=== PATIENT | male | born 1970 | race Caucasian/White ===

== ENCOUNTER 2024-07-24 21:41 | Inpatient (IN) | payer MEDICARE, OTHER ==
[2024-07-24] MEDS: MORPHINE SULFATE 2 MG/ML SYRINGE IVP PRN (22:41)
--- NOTE | 2024-07-24 22:41 | ED ---
General Adult HPI - General Source: patient, RN notes reviewed, old records reviewed Mode of arrival: ambulatory <Julieta Vazquez - Last Filed: 07/25/24 00:53> <Art Ewing - Last Filed: 07/31/24 23:15> - General Chief complaint: Fever Stated complaint: Headache,Fever Time Seen by Provider: 07/24/24 22:02 - History of Present Illness Initial comments: 54-year-old male presents with complaints of abdominal pain started 2 days ago. Reports a month ago he was having similar symptoms and went to the hospital where he was found to have a kidney stone, at that time he was seen by urology in the hospital who placed a stent in the left ureter with the intention of getting it out later this week. States that time in the hospital is also given antibiotics which he has since completed. Reports the last couple days he has been feeling feverish (with the highest fever of 101.3) with chills and just feeling very ill including some left lower quadrant pain that radiates to the groin into the left back. States after not having the pain controlled by [id number] medication and his symptoms seemingly getting worse he decided to come into the ER for further evaluation. (Julieta Vazquez) - Related Data Home Medications Medication Instructions Recorded Confirmed Albuterol Sulfate [Albuterol 2 puff PO RT-Q4H PRN 07/25/24 07/25/24 Sulfate Hfa] Ammonium Lactate Lotion 1 applic TOPICAL DAILY 07/25/24 07/25/24 [Lac-Hydrin 12% Lotion] Aspirin 81 mg PO DAILY 07/25/24 07/25/24 Atorvastatin Calcium [Lipitor] 40 mg PO DAILY 07/25/24 07/25/24 Brimonidine Tartrate/Timolol 1 drop BOTH EYES BID 07/25/24 07/25/24 [Combigan 0.2%-0.5% Eye Drops] Cyanocobalamin [Vitamin B-12] 500 mcg PO DAILY 07/25/24 07/25/24 Dextroamphetamine/Amphetamine 20 mg PO DAILY 07/25/24 07/25/24 [Adderall Xr 20 mg Capsule] FLUoxetine HCL [PROzac] 40 mg PO DAILY 07/25/24 07/25/24 Fenofibrate [Lofibra] 160 mg PO DAILY 07/25/24 07/25/24 Ferrous Sulfate [Iron (65 MG 325 mg PO DAILY 07/25/24 07/25/24 Elemental)] Fluticasone Nasal [place] [Flonase 1 spray EA NOSTRIL DAILY 07/25/24 07/25/24 Nasal [place]] Glucagon [Gvoke Pfs 1-Pack Syringe] 1 mg SQ DIRECTED PRN 07/25/24 07/25/24 Insulin Regular [humuLIN R] 0.01 units SQ-PUMP CONTINUOUS 07/25/24 07/25/24 Latanoprost [Latanoprost 0.005%] 1 drop BOTH EYES HS 07/25/24 07/25/24 Levothyroxine Sodium [Synthroid] 125 mcg PO DAILY 07/25/24 07/25/24 Liothyronine Sodium [Cytomel] 5 mcg PO BID 07/25/24 07/25/24 Loratadine [Claritin] 10 mg PO DAILY 07/25/24 07/25/24 Losartan Potassium [Cozaar] 100 mg PO DAILY 07/25/24 07/25/24 OXcarbazepine [Trileptal] 300 mg PO BID 07/25/24 07/25/24 Omeprazole 40 mg PO DAILY 07/25/24 07/25/24 Ondansetron Odt [Zofran ODT] 4 mg PO Q8H PRN 07/25/24 07/25/24 Potassium Chloride [Klor-Con M10] 10 meq PO BID 07/25/24 07/25/24 Pregabalin [Lyrica] 150 mg PO BID 07/25/24 07/25/24 Semaglutide [Ozempic] 0.25 mg SQ TH 07/25/24 07/25/24 Testosterone Cypionate 200 mg IM TH 07/25/24 07/25/24 [Depo-Testosterone] Vitamin B Complex 1 cap PO DAILY 07/25/24 07/25/24 amLODIPine [Norvasc] 5 mg PO DAILY 07/25/24 07/25/24 metFORMIN HCL [Glucophage] 500 mg PO DAILY 07/25/24 07/25/24 traZODone HCL [Desyrel] 50 mg PO HS 07/25/24 07/25/24 Previous Rx's Medication Instructions Recorded Amoxic-Pot Clav 875-125Mg 1 tab PO Q12HR 14 Days #28 tab 07/29/24 [Augmentin [id number]] Allergies Allergy/AdvReac Type Severity Reaction Status Date / Time No Known Allergies Allergy Verified 07/25/24 09:57 Review of Systems ROS Other: All systems not noted in ROS Statement are negative. <Julieta Vazquez - Last Filed: 07/25/24 00:53> ROS Other: All systems not noted in ROS Statement are negative. <Art Ewing - Last Filed: 07/31/24 23:15> ROS Statement: Those systems with pertinent positive or pertinent negative responses have been documented in the HPI. Past Medical History Past Medical History: Diabetes Mellitus, Hypertension Additional Past Medical History / Comment(s): kidney stones Additional Past Surgical History / Comment(s): R leg amputee Past Psychological History: No Psychological Hx Reported <Julieta Vazquez - Last Filed: 07/25/24 00:53> General Exam <Julieta Vazquez - Last Filed: 07/25/24 00:53> - General Exam Comments Initial Comments: GENERAL: In no apparent distress at the time of examination. Pleasant and cooperative. HEENT: Head is atraumatic, normocephalic. Pupils are equal, round, and reactive to light. Sclerae anicteric. Conjunctivae are clear. Mucus membranes of the mouth are moist. Neck is supple. RESPIRATORY: Clear to auscultation. No wheezes, rales, or rhonchi. No use of accessory muscles. Patient maintaining oxygen saturation greater than 92%. No chest wall tenderness is noted on palpation or with deep breathing. CARDIOVASCULAR: Regular rate and rhythm. S1 and S2 noted. No systolic or diastolic murmur auscultated. No JVD noted. No S3 or S4 noted. GASTROINTESTINAL: No distention noted. Abdomen soft and round. Normal active bowel sounds auscultated x 4 quadrants. Tenderness palpated most significant in the left lower quadrant with extending tenderness to the left groin and left flank as well as left back INTEGUMENTARY: No cyanosis. No jaundice. No rashes noted. No cellulitis noted. 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 Appropriate affect. Intact judgement and insight. (Julieta Vazquez) Course Vital Signs 07/24/24 07/24/2407/25/25 21:56 23:00 01:12 Temperature 99.6 F 98.7 F Pulse Rate 107 H 91 98 Respiratory 18 16 21 Rate Blood Pressure 152/71 117/64 135/70 O2 Sat by Pulse 96 96 94 L Oximetry 07/25/24 07/25/24 07/25/24 03:05 06:07 06:28 Temperature 99.7 F H Pulse Rate 102 H 92 Respiratory 18 18 Rate Blood Pressure 126/72 121/60 O2 Sat by Pulse 93 L 98 Oximetry Medical Decision Making - Lab Data Result diagrams: 07/24/24 22:34 07/24/24 22:34 <Julieta Vazquez - Last Filed: 07/25/24 00:53> - Lab Data Result diagrams: 07/29/24 05:47 07/29/24 05:47 <Art Ewing - Last Filed: 07/31/24 23:15> - Medical Decision Making Was pt. sent in by a medical professional or institution (, PA, BIT TRIPOLER, urgent care, hospital, or retirement...) When possible be specific @ -No Did you speak to anyone other than the patient for history (EMS, parent, family, police, friend...)? What history was obtained from this source @ -No Did you review nursing and triage notes (agree or disagree)? Why? @ -I reviewed and agree with nursing and triage notes Were old charts reviewed (outside hosp., previous admission, EMS record, old EKG, old radiological studies, urgent care reports/EKG's, retirement records)? Report findings @ -No old charts were reviewed Differential Diagnosis? @ -Differential Abdominal Pain Men: Appendicitis, cholecystitis, diverticulosis, pyelonephritis, ischemic bowel, pancreatitis, hepatitis, UTI, gastroenteritis, AAA, incarcerated hernia, bowel o bstruction, constipation, inflammatory bowel, hepatitis, peptic ulcer disease, splenic infarction, perforated viscus, testicular torsion, this is not meant to be an all-inclusive list EKG interpreted by me (3pts min.). @ -As above X-rays interpreted by me (1pt min.). @ -None done CT (1pt min.). @ -CT abdomen and pelvis without contrast not yet interpreted by radiology, but potential evidence of pyelonephritis on the left. U/S interpreted by me (1pt. min.). @ -None done What testing was considered but not performed or refused? (CT, X-rays, U/S, labs)? Why? @ -None What meds were considered but not given or refused? Why? @ -None Did you discuss the management of the patient with other professionals (professionals i.e. , PA, BIT TRIPOLER, lab, RT, psych nurse, social insurance adviser, quality assurance practice manager, teacher, legal compliance officer, clinical case manager)? Give summary @ -No Was smoking cessation discussed for >3mins.? @ -No Was critical care preformed (if so, how long)? @ -No Were there social determinants of health that impacted care today? How? (Homelessness, low income, unemployed, alcoholism, drug addiction, transportati on, low edu. Level, literacy, decrease access to med. care, snf, rehab)? @ -No Was there de-escalation of care discussed even if they declined (Discuss DNR or withdrawal of care, Hospice)? DNR status @ -No What co-morbidities impacted this encounter? (DM, HTN, Smoking, COPD, CAD, Cancer, CVA, ARF, Chemo, Hep., AIDS, mental health diagnosis, sleep apnea, morbid obesity)? @ -None Was patient admitted / discharged? Hospital course, mention meds given and route, prescriptions, significant lab abnormalities, going to OR and other pertinent info. @ -Admitted, 54-year-old male presenting with abdominal pain while here underwent laboratory testing which showed an elevated white count and urine with significant amounts of WBCs and RBCs. CT scan not yet read by radiology but in conjunction with clinical presentation and lab work and findings interpreted it would appear he has potential pyelonephritis. Sodium also was low at 128. Patient was started on Rocephin 2 g every 24 hours and has received pain medication which has helped his pain significantly. Undiagnosed new problem with uncertain prognosis? @ -No Drug Therapy requiring intensive monitoring for toxicity (Heparin, Nitro, Insulin, Cardizem)? @ -No Were any procedures done? @ -No Diagnosis/symptom? @ -Pyelonephritis Acute, or Chronic, or Acute on Chronic? @ -Default Uncomplicated (without systemic symptoms) or Complicated (systemic symptoms)? @ -Default Side effects of treatment? @ -No Exacerbation, Progression, or Severe Exacerbation? @ -No Poses a threat to life or bodily function? How? (Chest pain, [place], [place], pneumonia, PE, COPD, DKA, ARF, appy, cholecystitis, CVA, Diverticulitis, Homicidal, Suicidal, threat to staff... and all critical care pts) @ -Yes, pyelonephritis if left untreated can lead to sepsis which can lead to endorgan damage and . (Julieta Vazquez) I personally saw the patient and performed the critical portion of the service. I discussed the patient care with the Dr Villafana. I directed management, care planning and final disposition of the patient. This includes, but not limited to, review of all lab work, radiological studies, EKG's, consultations, vital signs, and nursing notes. EKG interpreted by me (3pts min.) @ [as above] X-Rays interpreted by me (1 pt min.) @ [none] CT interpreted by me ( 1pt min.) @He has positive pyelonephritis U/S interpreted by me (1 pt min.) @ [none] Critical care time of [0] minutes excluding separately billable procedures was spent in conjunction with critical care activities provided by the Resident and Attending simultaneously. I was present during [no procedures] for all critical portions of the procedure and as immediately available to furnish service during the entire procedure. (Art Ewing) - Lab Data Lab Results 07/24/24 07/24/24 07/24/24 Range/Units 22:34 22:34 22:34 WBC 16.88 H (4.50-10.00) 10*3/uL RBC 4.53 (4.40-5.60) 10*6/uL Hgb 13.0 (13.0-17.0) g/dL Hct 36.5 L (39.6-50.0) % MCV 80.6 (80.0-97.0) fL MCH 28.7 (27.0-32.0) pg MCHC 35.6 (32.0-37.0) g/dL Plt Count 251 (140-440) 10*3/uL MPV 10.3 (9.5-12.2) fL Immature Gran % (Auto) 0.6 % Neutrophils % 78.4 % Lymphocytes % 8.2 % Monocytes % 12.3 % Eosinophils % 0.1 % Basophils % 0.4 % Immature Gran # 0.10 H (0.00-0.04) 10*3/uL Neutrophils # 13.24 H (1.80-7.70) 10*3/uL Lymphocytes # 1.38 (0.90-5.00) 10*3/uL Monocytes # 2.07 H (0.20-1.00) 10*3/uL Eosinophils # 0.02 L (0.04-0.35) 10*3/uL Basophils # 0.07 (0.00-0.10) 10*3/uL Sodium 128 L (137-145) mmol/L Potassium 3.9 (3.5-5.1) mmol/L Chloride 97 L (98-107) mmol/L Carbon Dioxide 21 L (22-30) mmol/L Anion Gap 10 mmol/L BUN 20 (9-20) mg/dL Creatinine 0.94 (0.66-1.25) mg/dL Est GFR (CKD-EPI)AfAm >90 (>60 ml/min/1.73 sqM) Est GFR (CKD-EPI)NonAf >90 (>60 ml/min/1.73 sqM) Glucose 63 L (74-99) mg/dL Estimated Ave Glu mg/dL mg/dL Hemoglobin A1c (<=6.0) % Calcium 9.0 (8.4-10.2) mg/dL Total Bilirubin 1.0 (0.2-1.3) mg/dL AST 33 (17-59) U/L ALT 22 (4-49) U/L Alkaline Phosphatase 69 (38-126) U/L Total Protein 6.5 (6.3-8.2) g/dL Albumin 3.7 (3.5-5.0) g/dL Urine Color Light Red Urine Appearance Turbid (Clear) Urine pH 6.5 (5.0-8.0) Ur Specific [place] 1.021 (1.001-1.035) Urine Protein 1+ H (Negative) Urine Glucose (UA) Negative (Negative) Urine Ketones Trace H (Negative) Urine Blood Large H (Negative) Urine Nitrite Negative (Negative) Urine Bilirubin Negative (Negative) Urine Urobilinogen 2.0 (<2.0) mg/dL Ur Leukocyte Esterase Large H (Negative) Urine RBC >182 H (0-5) /hpf Urine WBC >182 H (0-5) /hpf Urine Bacteria Occasional H (None) /hpf Urine Mucus Many H (None) /hpf Urine Yeast (Budding) Few H (None) /hpf 07/24/24 Range/Units 22:34 WBC (4.50-10.00) 10*3/uL RBC (4.40-5.60) 10*6/uL Hgb (13.0-17.0) g/dL Hct (39.6-50.0) % MCV (80.0-97.0) fL MCH (27.0-32.0) pg MCHC (32.0-37.0) g/dL Plt Count (140-440) 10*3/uL MPV (9.5-12.2) fL Immature Gran % (Auto) % Neutrophils % % Lymphocytes % % Monocytes % % Eosinophils % % Basophils % % Immature Gran # (0.00-0.04) 10*3/uL Neutrophils # (1.80-7.70) 10*3/uL Lymphocytes # (0.90-5.00) 10*3/uL Monocytes # (0.20-1.00) 10*3/uL Eosinophils # (0.04-0.35) 10*3/uL Basophils # (0.00-0.10) 10*3/uL Sodium (137-145) mmol/L Potassium (3.5-5.1) mmol/L Chloride (98-107) mmol/L Carbon Dioxide (22-30) mmol/L Anion Gap mmol/L BUN (9-20) mg/dL Creatinine (0.66-1.25) mg/dL Est GFR (CKD-EPI)AfAm (>60 ml/min/1.73 sqM) Est GFR (CKD-EPI)NonAf (>60 ml/min/1.73 sqM) Glucose (74-99) mg/dL Estimated Ave Glu mg/dL 206 mg/dL Hemoglobin A1c 8.8 H (<=6.0) % Calcium (8.4-10.2) mg/dL Total Bilirubin (0.2-1.3) mg/dL AST (17-59) U/L ALT (4-49) U/L Alkaline Phosphatase (38-126) U/L Total Protein (6.3-8.2) g/dL Albumin (3.5-5.0) g/dL Urine Color Urine Appearance (Clear) Urine pH (5.0-8.0) Ur Specific [place] (1.001-1.035) Urine Protein (Negative) Urine Glucose (UA) (Negative) Urine Ketones (Negative) Urine Blood (Negative) Urine Nitrite (Negative) Urine Bilirubin (Negative) Urine Urobilinogen (<2.0) mg/dL Ur Leukocyte Esterase (Negative) Urine RBC (0-5) /hpf Urine WBC (0-5) /hpf Urine Bacteria (None) /hpf Urine Mucus (None) /hpf Urine Yeast (Budding) (None) /hpf Disposition <Julieta Vazquez - Last Filed: 07/25/24 00:53> <Art Ewing - Last Filed: 07/31/24 23:15> Clinical Impression: Pyelonephritis Disposition: ADMITTED IP TO THIS HOSP Condition: Fair
[2024-07-24 22:54] LABS: Basophils # (A) 0.07 10*3/uL (0.00-0.10); Basophils % (A) 0.4 %; Eosinophils # (A) 0.02 10*3/uL (0.04-0.35); Eosinophils % (A) 0.1 %; HCT 36.5 % (39.6-50.0); Lymphocytes # (A) 1.38 10*3/uL (0.90-5.00); Lymphocytes % (A) 8.2 %; MCH 28.7 pg (27.0-32.0); MCHC 35.6 g/dL (32.0-37.0); MCV 80.6 fL (80.0-97.0); Mean Platelet Volume 10.3 fL (9.5-12.2); Monocytes # (A) 2.07 10*3/uL (0.20-1.00); Monocytes % (A) 12.3 %; Neutrophils # (A) 13.24 10*3/uL (1.80-7.70); Neutrophils % (A) 78.4 %; Platelet Count 251 10*3/uL (140-440); RBC 4.53 10*6/uL (4.40-5.60); RDW 15.1 % (11.5-14.5); WBC 16.88 10*3/uL (4.50-10.00)
[2024-07-24 23:07] LABS: ALT 22 U/L (4-49); AST 33 U/L (17-59); African American GFR (CKD) >90 (>60 ml/min/1.73 sqM); Albumin 3.7 g/dL (3.5-5.0); Alkaline Phosphatase 69 U/L (38-126); Anion Gap 10 mmol/L; Blood Urea Nitrogen 20 mg/dL (9-20); Carbon Dioxide 21 mmol/L (22-30); Chloride 97 mmol/L (98-107); Glucose 63 mg/dL (74-99); Non-African American GFR(CKD) >90 (>60 ml/min/1.73 sqM); Sodium 128 mmol/L (137-145); Total Protein 6.5 g/dL (6.3-8.2)
[2024-07-24 23:15] LABS: Potassium 3.9 mmol/L (3.5-5.1)
[2024-07-24 23:42] LABS: Appearance,Urine Turbid (Clear); Bacteria,Urine Occasional /hpf; Bilirubin,Urine Negative (Negative); Blood,Urine Large (Negative); Budding Yeast,Urine Few /hpf; Color,Urine Light Red; Glucose,Urine (UA) Negative (Negative); Ketones,Urine Trace (Negative); Leukocyte Esterase,Urine Large (Negative); Mucus,Urine Many /hpf; Nitrite,Urine Negative (Negative); PH, Urine 6.5 (5.0-8.0); Protein,Urine 1+ (Negative); RBC,Urine >182 /hpf (0-5); Specific Gravity,Urine 1.021 (1.001-1.035); WBC,Urine >182 /hpf (0-5)
[2024-07-25] MEDS ORDERED: NALOXONE 0.4 MG/ML 1 ML VIAL IV PRN ×2 (00:12→00:36)
[2024-07-25] MEDS ORDERED: ONDANSETRON 4 MG/2 ML VIAL IVP PRN (00:36)
[2024-07-25] MEDS: KETOROLAC 15 MG/ML 1 ML VIAL IVP STA (00:59)
[2024-07-25] MEDS: SODIUM CHLORIDE 0.9% 1,000 ML IV SCH (00:59)
--- NOTE | 2024-07-25 01:07 | CT ---
EXAM: CT Abdomen and Pelvis Without Intravenous Contrast CLINICAL HISTORY: ITS.REASON CT Reason: LLQ Pain TECHNIQUE: Axial computed tomography images of the abdomen and pelvis without intravenous contrast. CTDI is 16.7 mGy and DLP is 1084 mGy-cm. This CT exam was performed using one or more of the following dose reduction techniques: automated exposure control, adjustment of the mA and/or kV according to patient size, and/or use of iterative reconstruction technique. COMPARISON: No relevant prior studies available. FINDINGS: Lung bases: Unremarkable. No mass. No consolidation. ABDOMEN: Liver: Unremarkable. Gallbladder and bile ducts: Unremarkable. No calcified stones. No ductal dilation. Pancreas: Unremarkable. No ductal dilation. Spleen: Unremarkable. No splenomegaly. Adrenals: Unremarkable. No mass. Kidneys and ureters: Left nephroureteral stent terminates in the urinary bladder, which is thickened, correlate for UTI. Urinalysis recommended. No obstructing stones. No hydronephrosis. Stomach and bowel: Diverticulosis, without acute diverticulitis. No small bowel obstruction. No free air. PELVIS: Appendix: No findings to suggest acute appendicitis. Bladder: Unremarkable. No stones. Reproductive: Unremarkable as visualized. ABDOMEN and PELVIS: Intraperitoneal space: See above. Bones/joints: Degenerative changes of the spine. No acute fracture. No dislocation. Soft tissues: Fat containing bilateral inguinal hernias. Vasculature: Atherosclerotic changes of the aorta. No abdominal aortic aneurysm. Lymph nodes: Unremarkable. No enlarged lymph nodes. IMPRESSION: 1. Left nephroureteral stent terminates in the urinary bladder, which is thickened, correlate for UTI. Urinalysis recommended. 2. Diverticulosis, without acute diverticulitis. No small bowel obstruction. No free air.
--- NOTE | 2024-07-25 08:16 | P.GSCN ---
History of Present Illness Consult date: 07/25/24 History of present illness: 54 yo male admitted for probable left pyelonephritis. A few days ago he presented to a hospital in [place]. For an obstructing left ureteral stone. A stent was placed in the left ureter with the plan to remove the stone and stent in the near future. He has had a temp to 101.3 , a wbc of 16 k and inflammed urine. The ct scan shows a left ureteral stent in proper position. the stone on the left is not obviously seen. Past Medical History Past Medical History: Diabetes Mellitus, Hypertension Additional Past Medical History / Comment(s): kidney stones Additional Past Surgical History / Comment(s): R leg amputee Past Psychological History: No Psychological Hx Reported Medications and Allergies Allergies Allergy/AdvReac Type Severity Reaction Status Date / Time No Known Allergies Allergy Verified 07/24/24 22:00 Surgical - Exam Vital Signs Temp Pulse Resp BP Pulse Ox 99.6 F 107 H 18 152/71 96 07/24/24 21:56 07/24/24 21:56 07/24/24 21:56 07/24/24 21:56 07/24/24 21:56 - General well developed, well nourished, no distress - Eyes normal ocular movement, no icteric - ENT no hearing loss, no congestion - Neck no masses, trachea midline - Respiratory normal respiratory effort, clear to auscultation - Abdomen Abdomen: soft, non tender, no guarding, no rigid, no rebound - Integumentary no rash, no abnormal pigmentation - Neurologic no disoriented, no combative - Psychiatric oriented to time, oriented to person, oriented to place, speech is normal, caity ry intact Results - Labs 07/24/24 22:34 07/24/24 22:34 Abnormal Lab Results - Last 24 Hours (Table) 07/24/24 07/24/24 07/24/24 Range/Units 22:34 22:34 22:34 WBC 16.88 H (4.50-10.00) 10*3/uL Hct 36.5 L (39.6-50.0) % Immature Gran # 0.10 H (0.00-0.04) 10*3/uL Neutrophils # 13.24 H (1.80-7.70) 10*3/uL Monocytes # 2.07 H (0.20-1.00) 10*3/uL Eosinophils # 0.02 L (0.04-0.35) 10*3/uL Sodium 128 L (137-145) mmol/L Chloride 97 L (98-107) mmol/L Carbon Dioxide 21 L (22-30) mmol/L Glucose 63 L (74-99) mg/dL Urine Protein 1+ H (Negative) Urine Ketones Trace H (Negative) Urine Blood Large H (Negative) Ur Leukocyte Esterase Large H (Negative) Urine RBC >182 H (0-5) /hpf Urine WBC >182 H (0-5) /hpf Urine Bacteria Occasional H (None) /hpf Urine Mucus Many H (None) /hpf Urine Yeast (Budding) Few H (None) /hpf Diabetes panel 07/24/24 Range/Units 22:34 Sodium 128 L (137-145) mmol/L Potassium 3.9 (3.5-5.1) mmol/L Chloride 97 L (98-107) mmol/L Carbon Dioxide 21 L (22-30) mmol/L BUN 20 (9-20) mg/dL Creatinine 0.94 (0.66-1.25) mg/dL Glucose 63 L (74-99) mg/dL Calcium 9.0 (8.4-10.2) mg/dL AST 33 (17-59) U/L ALT 22 (4-49) U/L Alkaline Phosphatase 69 (38-126) U/L Total Protein 6.5 (6.3-8.2) g/dL Albumin 3.7 (3.5-5.0) g/dL Calcium panel 07/24/24 Range/Units 22:34 Calcium 9.0 (8.4-10.2) mg/dL Albumin 3.7 (3.5-5.0) g/dL Pituitary panel 07/24/24 Range/Units 22:34 Sodium 128 L (137-145) mmol/L Potassium 3.9 (3.5-5.1) mmol/L Chloride 97 L (98-107) mmol/L Carbon Dioxide 21 L (22-30) mmol/L BUN 20 (9-20) mg/dL Creatinine 0.94 (0.66-1.25) mg/dL Glucose 63 L (74-99) mg/dL Calcium 9.0 (8.4-10.2) mg/dL Adrenal panel 07/24/24 Range/Units 22:34 Sodium 128 L (137-145) mmol/L Potassium 3.9 (3.5-5.1) mmol/L Chloride 97 L (98-107) mmol/L Carbon Dioxide 21 L (22-30) mmol/L BUN 20 (9-20) mg/dL Creatinine 0.94 (0.66-1.25) mg/dL Glucose 63 L (74-99) mg/dL Calcium 9.0 (8.4-10.2) mg/dL Total Bilirubin 1.0 (0.2-1.3) mg/dL AST 33 (17-59) U/L ALT 22 (4-49) U/L Alkaline Phosphatase 69 (38-126) U/L Total Protein 6.5 (6.3-8.2) g/dL Albumin 3.7 (3.5-5.0) g/dL - Imaging CT scan - abdomen: report reviewed, image reviewed CT scan - pelvis: report reviewed, image reviewed Assessment and Plan Assessment: Impression: p\uti with sepsis s/p stent placement. left ureteral stone. history of kdiney stones. recommendations: the patient should continue to receive broad spectrum antibiotics until cultures are back. No surgical intervention until after the infection clears, probably in 1-2 weeks. Patient should notify his urologist in [place] that he will not have his procedure this week but upon returning to [place] he can have it done. Time with Patient: Greater than 30
[2024-07-25] MEDS ORDERED: ONDANSETRON ODT 4 MG TAB PO PRN (10:24)
[2024-07-25] MEDS ORDERED: ALBUTEROL NEBULIZED 2.5 MG/3 ML INHALATION PRN (10:24)
[2024-07-25] MEDS ORDERED: DEXTROSE 50% SYRINGE 50 ML IVP PRN (10:27)
[2024-07-25] MEDS ORDERED: GLUCAGON 1 MG/ML VIAL SQ PRN (11:10)
[2024-07-25] MEDS ORDERED: INSULIN REGULAR 100 UNIT/ML VIAL (IV) SQ SCH (11:15)
[2024-07-25] MEDS: ATORVASTATIN 40 MG TAB PO SCH (11:42)
[2024-07-25] MEDS: BRIMONIDINE TARTRATE 0.2% DROPS 5 ML BTL BOTH EYES SCH (11:42)
[2024-07-25] MEDS: AMMONIUM LACTATE 12% LOTION 225 GM BTL TOPICAL SCH (11:42)
[2024-07-25] MEDS: PREGABALIN 75 MG CAP PO SCH (11:43)
[2024-07-25] MEDS: LEVOTHYROXINE 125 MCG TAB PO SCH (11:44)
[2024-07-25] MEDS: FLUoxetine HCL 20 MG CAP PO SCH (11:44)
[2024-07-25] MEDS: LORATADINE 10 MG TAB PO SCH (11:44)
[2024-07-25] MEDS: FERROUS SULFATE 325 MG TAB PO SCH (11:44)
[2024-07-25] MEDS: PANTOPRAZOLE 40 MG TABLET PO SCH (11:44)
[2024-07-25] MEDS: LIOTHYRONINE SODIUM 5 MCG TAB PO SCH (11:44)
[2024-07-25] MEDS: FENOFIBRATE 160 MG TAB PO SCH (11:44)
[2024-07-25] MEDS: CYANOCOBALAMIN 500 MCG TAB PO SCH (11:45)
[2024-07-25] MEDS: FLUTICASONE NASAL 50MCG/SPRAY 16GM BTL EA NOSTRIL SCH (11:45)
[2024-07-25] MEDS: OXcarbazepine 300 MG TAB PO SCH (11:45)
[2024-07-25] MEDS: DEXTROAMPHETAMINE PO SCH (11:46)
[2024-07-25] MEDS: AMPHETAMINE PO SCH (11:46)
[2024-07-25] MEDS: Insulin Aspart (For Pump) 100 UNIT/ML VIAL SQ-PUMP SCH (11:55)
[2024-07-25] MEDS: INSULIN LISPRO (HumaLOG) 100 UNIT/ML 10 mL VL SQ SCH (11:57)
[2024-07-25] MEDS: NON FORMULARY DRUG (Vitamin B Complex [Vitamin B Complex] 1 EACH Capsule) PO SCH (12:02)
[2024-07-25] MEDS: amLODIPine 5 MG TAB PO SCH (12:03)
[2024-07-25 12:05] LABS: Glucose,Whole Blood 312 mg/dL (70-110)
[2024-07-25] MEDS: IBUPROFEN 400 MG TAB PO PRN (13:31)
[2024-07-25 16:29] LABS: Glucose,Whole Blood 410 mg/dL (70-110)
--- NOTE | 2024-07-25 17:23 | HP ---
HISTORY AND PHYSICAL CHIEF COMPLAINT: Fever as well as left flank pain. HISTORY OF PRESENT ILLNESS: This 54-year-old gentleman with a past medical history of left ureteral stent, had an obstructing left ureteral stone. The patient was admitted with fever and flank pain with possible pyelonephritis. Urology evaluated the patient. A CAT scan of the abdomen and pelvis showed left nephroureteral stent. There is no history of fever, rigors, or chills at this time. PAST MEDICAL HISTORY: Reviewed, include diabetes mellitus, hypertension, and kidney stones. Rest of the history and rest of the chart is also reviewed. HOME MEDICATIONS: Reviewed, include Dose and rest of medications reviewed. ALLERGIES: None. FAMILY HISTORY: No history of heart disease or strokes in the family. SOCIAL HISTORY: No history of smoking or alcohol. REVIEW OF SYSTEMS: A 14-point review of systems negative except as mentioned earlier. PHYSICAL EXAMINATION: VITAL SIGNS: Pulse 92, blood pressure 110/60, and respirations 18. CHEST: Clear to auscultation. CARDIOVASCULAR: S1, S2. ABDOMEN: Soft, obese, mild diffuse tenderness in the left side. NERVOUS SYSTEM: No focal deficit. LABORATORY DATA: Reviewed. ASSESSMENT: 1. Acute pyelonephritis, left. 2. History of left ureteric stent and ureterolithiasis. 3. Elevated WBC. 4. Hyponatremia. 5. Diabetes. 6. History of hypertension. 7. Multiple complex medical issues. RECOMMENDATIONS AND DISCUSSION: This 54-year-old gentleman presented with multiple complex medical issues. Monitor the patient closely. We will continue the current medications and empiric antibiotics. Obtain urine and blood cultures. Urology consultation and symptomatic treatment. Resume home medications once they are confirmed. Repeat labs. Prognosis guarded, because of multiple complex medical issues. Further recommendations to follow. MMODL / IJN: [id number] / MTDD
[2024-07-25 20:25] LABS: Glucose,Whole Blood 445 mg/dL (70-110)
[2024-07-25] MEDS: LATANOPROST 0.005% OPHTH DROPS 2.5 ML BTL BOTH EYES SCH (20:30)
[2024-07-25] MEDS: TIMOLOL 0.5% OPHTH DROPS 5 ML BTL BOTH EYES SCH (20:30)
[2024-07-25] MEDS: POTASSIUM CHLORIDE ER 10 MEQ TAB.ER.PRT PO SCH (20:31)
[2024-07-25] MEDS: traZODone HCL 50 MG TAB PO SCH (20:31)
[2024-07-25] MEDS: INSULIN GLARGINE (LANTUS) 100 UNIT/ML SYR SQ SCH (20:31)
[2024-07-26 06:07] LABS: Glucose,Whole Blood 300 mg/dL (70-110)
[2024-07-26] MEDS: metFORMIN 500 MG TAB PO SCH (06:28)
[2024-07-26 07:16] LABS: Basophils # (A) 0.02 10*3/uL (0.00-0.10); Basophils % (A) 0.2 %; Eosinophils # (A) 0.04 10*3/uL (0.04-0.35); Eosinophils % (A) 0.5 %; HCT 34.8 % (39.6-50.0); Lymphocytes # (A) 1.02 10*3/uL (0.90-5.00); Lymphocytes % (A) 11.7 %; MCH 28.4 pg (27.0-32.0); MCHC 34.5 g/dL (32.0-37.0); MCV 82.5 fL (80.0-97.0); Mean Platelet Volume 9.9 fL (9.5-12.2); Monocytes # (A) 1.16 10*3/uL (0.20-1.00); Monocytes % (A) 13.3 %; Neutrophils # (A) 6.39 10*3/uL (1.80-7.70); Neutrophils % (A) 73.5 %; Platelet Count 246 10*3/uL (140-440); RBC 4.22 10*6/uL (4.40-5.60); RDW 15.4 % (11.5-14.5)
[2024-07-26 07:26] LABS: ALT 19 U/L (4-49); AST 19 U/L (17-59); African American GFR (CKD) >90 (>60 ml/min/1.73 sqM); Albumin 3.2 g/dL (3.5-5.0); Alkaline Phosphatase 84 U/L (38-126); Anion Gap 13 mmol/L; Blood Urea Nitrogen 21 mg/dL (9-20); Calcium 8.6 mg/dL (8.4-10.2); Carbon Dioxide 22 mmol/L (22-30); Chloride 98 mmol/L (98-107); Glucose 301 mg/dL (74-99); Non-African American GFR(CKD) 79 (>60 ml/min/1.73 sqM); Phosphorus 3.2 mg/dL (2.5-4.5); Potassium 4.2 mmol/L (3.5-5.1); Sodium 133 mmol/L (137-145); Total Bilirubin 0.6 mg/dL (0.2-1.3); Total Protein 5.6 g/dL (6.3-8.2)
[2024-07-26] MEDS: ASPIRIN 81 MG PO SCH (08:36)
[2024-07-26] MEDS: ACETAMINOPHEN TAB 325 MG TAB PO PRN (08:37)
[2024-07-26] MEDS: LOSARTAN 50 MG TAB PO SCH (08:38)
[2024-07-26] MEDS ORDERED: hydroCHLOROthiazide 25 MG TAB PO SCH (09:00)
[2024-07-26] MEDS ORDERED: NON FORMULARY DRUG (Omeprazole [Omeprazole] 40 MG Capsule.Dr) PO SCH (09:00)
[2024-07-26] MEDS: amLODIPine 5 MG TAB PO SCH (10:47)
[2024-07-26 11:35] LABS: Glucose,Whole Blood 384 mg/dL (70-110)
[2024-07-26] MEDS: MORPHINE SULFATE 4 MG/ML SYRINGE IV PRN (17:33)
[2024-07-26 18:09] LABS: Glucose,Whole Blood 421 mg/dL (70-110)
[2024-07-26 20:19] LABS: Glucose,Whole Blood 376 mg/dL (70-110)
--- NOTE | 2024-07-26 21:39 | PN ---
PROGRESS NOTE DATE OF SERVICE: 07/26/2024 SUBJECTIVE: This is a 54-year-old gentleman, who was admitted with acute pyelonephritis, is being closely monitored, no chest pain, no palpitation. Cultures are negative so far. PHYSICAL EXAMINATION: VITAL SIGNS: Pulse 84, blood pressure 120/70, respirations 17. CHEST: No rhonchi. No crackles. ABDOMEN: Soft, mild diffuse tenderness. LABORATORY DATA: Reviewed. Glucose 384. ASSESSMENT: 1. Acute pyelonephritis, left with continued fever. 2. History of left ureteric stent and ureterolithiasis. 3. Elevated WBC. 4. Diabetes mellitus type 2 with hyperglycemia. 5. Hyponatremia. 6. History of hypertension. 7. Multiple complex medical issues. RECOMMENDATIONS: Recommend to continue current management and continue symptomatic treatment. CT scan showed some thickening of the nephroureteral stent which is terminated in the urinary bladder. The patient is running some fever. I would recommend to continue the antibiotics. Obtain repeat set of cultures. I would also recommend Infectious Disease evaluation and closely follow with Urology. I would also recommend tighter control of the diabetes mellitus. Further recommendations to follow. MMODL / IJN: [id number] /
--- NOTE | 2024-07-26 22:34 | P.CONS ---
History of Present Illness - Reason for Consult Consult date: 07/26/[address]/UTI Requesting physician: Ruth Kennedy - Chief Complaint Fever flank pain burning urine x 2 days - History of Present Illness Patient is a 54-year-old male past medical history significant for diabetes mellitus hypertension kidney stone in this patient who recently was treated for left-sided hydronephrosis/pyelonephritis with this patient who did have a left ureteral stent placement patient was subsequent discharged home on a 3-day course of oral doxycycline patient presented to [facility] ER concerning for fever chills left flank pain in this patient symptom has been getting worse for the last 2 days before presentation to the hospital patient has been complaining of some headache but no URI symptoms no chest pain shortness of breath or cough no nausea no vomiting did have some constipation no diarrhea did have urinary burning and frequency but no hematuria in addition to the flank pain which is moderate intensity without radiation patient on presentation to the hospital was running a low-grade fever of 99.6 degrees warm dry did have temperature 100.1 F this morning patient was mildly tachycardic but not hypotensive or hypoxic patient did have white count of 16.88 creatinine was 0.94 liver enzymes are normal urine has been positive blood and urine culture have been obtained patient is currently being treated with Rocephin 2 g daily patient also have abdominal pelvis CT which shows left nephroureteral stent terminates in the bladder which is thickening correlate for UTI diverticulosis without acute diverticulitis infectious he was consulted for further management of antibiotic therapy Review of Systems Positive point and negatives has been mentioned in the HPI, complete review of systems was performed and all other systems are negative Past Medical History Past Medical History: Diabetes Mellitus, Hypertension Additional Past Medical History / Comment(s): kidney stones History of Any Multi-Drug Resistant Organisms: Unobtainable Additional Past Surgical History / Comment(s): R leg amputee Past Psychological History: No Psychological Hx Reported Medications and Allergies Home Medications Medication Instructions Recorded Confirmed Type Albuterol Sulfate [Albuterol 2 puff PO RT-Q4H PRN 07/25/24 07/25/24 History Sulfate Hfa] Ammonium Lactate Lotion 1 applic TOPICAL DAILY 07/25/24 07/25/24 History [Lac-Hydrin 12% Lotion] Aspirin 81 mg PO DAILY 07/25/24 07/25/24 History Atorvastatin Calcium [Lipitor] 40 mg PO DAILY 07/25/24 07/25/24 History Brimonidine Tartrate/Timolol 1 drop BOTH EYES BID 07/25/24 07/25/24 History [Combigan 0.2%-0.5% Eye Drops] Cyanocobalamin [Vitamin B-12] 500 mcg PO DAILY 07/25/24 07/25/24 History Dextroamphetamine/Amphetamine 20 mg PO DAILY 07/25/24 07/25/24 History [Adderall Xr 20 mg Capsule] FLUoxetine HCL [PROzac] 40 mg PO DAILY 07/25/24 07/25/24 History Fenofibrate [Lofibra] 160 mg PO DAILY 07/25/24 07/25/24 History Ferrous Sulfate [Iron (65 MG 325 mg PO DAILY 07/25/24 07/25/24 History Elemental)] Fluticasone Nasal [place] [Flonase 1 spray EA NOSTRIL DAILY 07/25/24 07/25/24 History Nasal [place]] Glucagon [Gvoke Pfs 1-Pack Syringe] 1 mg SQ DIRECTED PRN 07/25/24 07/25/24 History Insulin Regular [humuLIN R] 0.01 units SQ-PUMP CONTINUOUS 07/25/24 07/25/24 History Latanoprost [Latanoprost 0.005%] 1 drop BOTH EYES HS 07/25/24 07/25/24 History Levothyroxine Sodium [Synthroid] 125 mcg PO DAILY 07/25/24 07/25/24 History Liothyronine Sodium [Cytomel] 5 mcg PO BID 07/25/24 07/25/24 History Loratadine [Claritin] 10 mg PO DAILY 07/25/24 07/25/24 History Losartan Potassium [Cozaar] 100 mg PO DAILY 07/25/24 07/25/24 History OXcarbazepine [Trileptal] 300 mg PO BID 07/25/24 07/25/24 History Omeprazole 40 mg PO DAILY 07/25/24 07/25/24 History Ondansetron Odt [Zofran Odt] 4 mg PO Q8H PRN 07/25/24 07/25/24 History Potassium Chloride [Klor-Con M10] 10 meq PO BID 07/25/24 07/25/24 History Pregabalin [Lyrica] 150 mg PO BID 07/25/24 07/25/24 History Semaglutide [Ozempic] 0.25 mg SQ TH 07/25/24 07/25/24 History Testosterone Cypionate 200 mg IM TH 07/25/24 07/25/24 History [Depo-Testosterone] Vitamin B Complex 1 cap PO DAILY 07/25/24 07/25/24 History amLODIPine [Norvasc] 5 mg PO DAILY 07/25/24 07/25/24 History hydroCHLOROthiazide [Hydrodiuril] 25 mg PO DAILY 07/25/24 07/25/24 History metFORMIN HCL [Glucophage] 500 mg PO DAILY 07/25/24 07/25/24 History traZODone HCL [Desyrel] 50 mg PO HS 07/25/24 07/25/24 History Allergies Allergy/AdvReac Type Severity Reaction Status Date / Time No Known Allergies Allergy Verified 07/25/24 09:57 Physical Exam Vitals: Vital Signs Temp Pulse Resp BP Pulse Ox 07/26/24 10:47 98.5 F 84 128/73 07/26/24 08:00 100.1 F H 96 17 132/73 96 07/26/24 01:43 98.1 F 92 20 141/52 93 L 07/25/24 18:57 98.2 F 104 H 16 147/66 97 Intake and Output 07/26/24 07/26/24 07/26/24 06:59 14:59 22:59 Intake Total 200 Output Total 300 Balance -300 200 Intake: Oral 200 Output: Urine 300 Other: Voiding Method Toilet Urinal GENERAL DESCRIPTION: Middle-age male lying in bed, no distress. No tachypnea or accessory muscle of respiration use. HEENT: Shows Pallor , no scleral icterus. Oral mucous membrane is dry. NECK: Trachea central, no thyromegaly. LUNGS: Unlabored breathing. Clear to auscultation anteriorly. No wheeze or crackle. HEART: S1, S2, regular rate and rhythm. No loud murmur ABDOMEN: Soft, no tenderness , guarding or rigidity, no organomegaly EXTREMITIES: Left leg BKA prosthesis SKIN: No rash, no masses palpable. NEUROLOGICAL: The patient is awake, alert, oriented x3, mood and affect normal. Results CBC & Chem 7: 07/26/24 06:35 07/26/24 06:35 Labs: Abnormal Lab Results - Last 24 Hours (Table) 07/24/24 07/25/24 07/25/24 Range/Units 22:34 16:28 20:24 RBC (4.40-5.60) 10*6/uL Hgb (13.0-17.0) g/dL Hct (39.6-50.0) % Immature Gran # (0.00-0.04) 10*3/uL Monocytes # (0.20-1.00) 10*3/uL Sodium (137-145) mmol/L BUN (9-20) mg/dL Glucose (74-99) mg/dL POC Glucose (mg/dL) 410 H 445 H (70-110) mg/dL Hemoglobin A1c 8.8 H (<=6.0) % Total Protein (6.3-8.2) g/dL Albumin (3.5-5.0) g/dL 07/26/24 07/26/24 07/26/24 Range/Units 06:06 06:35 06:35 RBC 4.22 L (4.40-5.60) 10*6/uL Hgb 12.0 L (13.0-17.0) g/dL Hct 34.8 L (39.6-50.0) % Immature Gran # 0.07 H (0.00-0.04) 10*3/uL Monocytes # 1.16 H (0.20-1.00) 10*3/uL Sodium 133 L (137-145) mmol/L BUN 21 H (9-20) mg/dL Glucose 301 H (74-99) mg/dL POC Glucose (mg/dL) 300 H (70-110) mg/dL Hemoglobin A1c (<=6.0) % Total Protein 5.6 L (6.3-8.2) g/dL Albumin 3.2 L (3.5-5.0) g/dL 07/26/24 Range/Units 11:34 RBC (4.40-5.60) 10*6/uL Hgb (13.0-17.0) g/dL Hct (39.6-50.0) % Immature Gran # (0.00-0.04) 10*3/uL Monocytes # (0.20-1.00) 10*3/uL Sodium (137-145) mmol/L BUN (9-20) mg/dL Glucose (74-99) mg/dL POC Glucose (mg/dL) 384 H (70-110) mg/dL Hemoglobin A1c (<=6.0) % Total Protein (6.3-8.2) g/dL Albumin (3.5-5.0) g/dL Assessment and Plan (1) Sepsis Current Visit: Yes Status: Acute Code(s): A41.9 - SEPSIS, UNSPECIFIED ORGANISM SNOMED Code(s): 12744004 (2) Pyelonephritis Current Visit: Yes Status: Acute Code(s): N12 - TUBULO-INTERSTITIAL NEPHRITIS, NOT SPCF ACUTE OR CHRONIC SNOMED Code(s): 47982506 Plan: 1patient [facility] ([place], [place]) hospital with sepsis in this patient who did have a tachycardia elevated white count and low-grade fever medically for SIRS/sepsis source is urinary in this patient who did have a recent history of left ureteral stent placement for obstructive uropathy with the abnormality seen on the CT significantly positive UA likely concerning for complicated UTI from enteric gram-negative pathogen 2-patient will be treated with Rocephin 2 g daily while waiting for the culture to finalize Question concern answered We will follow on clinical condition and cultures to further adjust medication if needed Thank you for this consultation we will follow the patient along with you Dictation was produced using [employer] dictation software. please excuse any grammatical, word or spelling errors. Time with Patient: Greater than 30
[2024-07-27] MEDS ORDERED: INSPUCOR MISCELLANE PRN (01:20)
[2024-07-27] MEDS ORDERED: INSULIN LISPRO (HumaLOG) 100 UNIT/ML 10 mL VL SQ PRN (01:20)
[2024-07-27] MEDS ORDERED: INSULIN PUMP BASAL RATES 1 EACH MISC MISCELLANE PRN (01:20)
[2024-07-27 04:15] LABS: Glucose,Whole Blood 50 mg/dL (70-110)
[2024-07-27 04:40] LABS: Glucose,Whole Blood 75 mg/dL (70-110)
[2024-07-27 06:22] LABS: Glucose,Whole Blood 195 mg/dL (70-110)
[2024-07-27] MEDS: INSULIN PUMP MEAL BOLUS 1 UNIT MISC MISCELLANE SCH (07:04)
[2024-07-27] MEDS: NON FORMULARY DRUG (Semaglutide [Ozempic] 0.25 MG/0.368 ML Pen.Injctr) SQ SCH (08:12)
[2024-07-27 08:17] LABS: BUN/Creat Ratio 19.91 Ratio (12.00-20.00); Blood Urea Nitrogen 21.9 mg/dL (9.0-27.0); Calcium 8.3 mg/dL (8.7-10.3); Carbon Dioxide 21.8 mmol/L (21.6-31.8); Chloride 100 mmol/L (96-109); Glucose 53 mg/dL (70-110); Sodium 133 mmol/L (135-145)
[2024-07-27 08:22] LABS: Basophils # (A) 0.04 X 10*3/uL (0.00-0.10); Basophils % (A) 0.4 %; Eosinophils # (A) 0.11 X 10*3/uL (0.04-0.35); HCT 34.2 % (39.6-50.0); HGB 11.2 g/dL (13.0-17.0); Lymphocytes # (A) 1.45 X 10*3/uL (0.90-5.00); Lymphocytes % (A) 13.4 %; MCH 27.5 pg (27.0-32.0); MCHC 32.7 g/dL (32.0-37.0); Mean Platelet Volume 10.3 FL (9.5-12.2); Monocytes # (A) 1.38 X 10*3/uL (0.20-1.00); Monocytes % (A) 12.8 %; NRBC Per 100 WBC 0 X 10*3/uL (0.00-0.01); Neutrophils # (A) 7.73 X 10*3/uL (1.80-7.70); Neutrophils % (A) 71.7 %; Platelet Count 278 X 10*3/uL (140-440); RBC 4.07 X 10*6/uL (4.40-5.60); RDW 15.6 % (11.5-14.5); WBC 10.79 X 10*3/uL (4.50-10.00)
[2024-07-27 11:18] LABS: Glucose,Whole Blood 153 mg/dL (70-110)
[2024-07-27] MEDS: TESTOSTERONE CYPIONATE 200 MG/ML 1ML VIAL IM SCH (11:25)
[2024-07-27 16:17] LABS: Glucose,Whole Blood 61 mg/dL (70-110)
--- NOTE | 2024-07-27 16:48 | P.PN ---
Subjective Progress Note Date: 07/27/24 Principal diagnosis: Reason for follow-up is complicated UTI Patient is a 54-year-old male past medical history significant for diabetes mellitus hypertension kidney stone in this patient who recently was treated for left-sided hydronephrosis/pyelonephritis with this patient who did have a left ureteral stent subsequent discharged on oral Doxy now presented to this facility with fever chills flank pain has been diagnosed with a complicated UTI prompting this consultation On today's evaluation that is 07/27/2024,the patient did spike a fever of 101.5 F this afternoon patient is breathing comfortably room air no chest pain shortness of breath or cough no abdominal pain or diarrhea. The patient white count is 10.79 blood urine cultures currently pending Objective - Vital Signs Vital signs: Vital Signs Temp 101.5 F H 07/27/24 14:18 Pulse 99 07/27/24 14:18 Resp 16 07/27/24 14:18 BP 116/73 07/27/24 14:18 Pulse Ox 92 L 07/27/24 14:18 FiO2 Intake & Output 07/26/24 07/27/24 07/27/24 18:59 06:59 18:59 Intake Total 200 720 Balance 200 720 Intake: Oral 200 720 Other: Voiding Method Toilet Toilet Urinal # Voids 2 - Exam GENERAL DESCRIPTION: Middle-age male up in the room in no distress RESPIRATORY SYSTEM: Unlabored breathing , decreased breath sounds at bases HEART: S1 S2 regular rate and rhythm , ABDOMEN: Soft , no tenderness EXTREMITIES: No edema feet - Labs CBC & Chem 7: 07/27/24 03:01 07/27/24 03:01 Labs: Abnormal Lab Results - Last 24 Hours (Table) 07/26/24 07/26/24 07/27/24 Range/Units 18:07 20:18 03:01 WBC 10.79 H (4.50-10.00) X 10*3/uL RBC 4.07 L (4.40-5.60) X 10*6/uL Hgb 11.2 L (13.0-17.0) g/dL Hct 34.2 L (39.6-50.0) % RDW 15.6 H (11.5-14.5) % Immature Gran # 0.08 H (0.00-0.04) X 10*3/uL Neutrophils # 7.73 H (1.80-7.70) X 10*3/uL Monocytes # 1.38 H (0.20-1.00) X 10*3/uL Sodium (135-145) mmol/L Glucose (70-110) mg/dL POC Glucose (mg/dL) 421 H 376 H (70-110) mg/dL Calcium (8.7-10.3) mg/dL 07/27/24 07/27/24 07/27/24 Range/Units 03:01 04:13 06:21 WBC (4.50-10.00) X 10*3/uL RBC (4.40-5.60) X 10*6/uL Hgb (13.0-17.0) g/dL Hct (39.6-50.0) % RDW (11.5-14.5) % Immature Gran # (0.00-0.04) X 10*3/uL Neutrophils # (1.80-7.70) X 10*3/uL Monocytes # (0.20-1.00) X 10*3/uL Sodium 133 L (135-145) mmol/L Glucose 53 L (70-110) mg/dL POC Glucose (mg/dL) 50 L 195 H (70-110) mg/dL Calcium 8.3 L (8.7-10.3) mg/dL 07/27/24 07/27/24 Range/Units 11:16 16:14 WBC (4.50-10.00) X 10*3/uL RBC (4.40-5.60) X 10*6/uL Hgb (13.0-17.0) g/dL Hct (39.6-50.0) % RDW (11.5-14.5) % Immature Gran # (0.00-0.04) X 10*3/uL Neutrophils # (1.80-7.70) X 10*3/uL Monocytes # (0.20-1.00) X 10*3/uL Sodium (135-145) mmol/L Glucose (70-110) mg/dL POC Glucose (mg/dL) 153 H 61 L (70-110) mg/dL Calcium (8.7-10.3) mg/dL Microbiology - Last 24 Hours (Table) 07/25/24 13:15 Urine Culture - Preliminary Urine,Clean Catch 07/25/24 11:15 Blood Culture - Preliminary Blood Assessment and Plan (1) Sepsis Current Visit: Yes Status: Acute Code(s): A41.9 - SEPSIS, UNSPECIFIED ORGANISM SNOMED Code(s): 41146117 (2) Pyelonephritis Current Visit: Yes Status: Acute Code(s): N12 - TUBULO-INTERSTITIAL NE PHRITIS, NOT SPCF ACUTE OR CHRONIC SNOMED Code(s): 11142570 Plan: 1patient presented hospital with sepsis in this patient who did have a t achycardia elevated white count and low-grade fever medically for SIRS/sepsis source is urinary in this patient who did have a recent history of left ureteral stent placement for obstructive uropathy with the abnormality seen on the CT significantly positive UA likely concerning for complicated UTI from enteric gram-negative pathogen 2-patient is spiking the fever despite being on Rocephin concern for possible resistant gram-negative we will discontinue Rocephin start the patient on cefepime while waiting for the culture to finalize Dictation was produced using [employer] dictation software. please excuse any grammatical, word or spelling errors. Time with Patient: Less than 30
[2024-07-27 16:55] LABS: Glucose,Whole Blood 59 mg/dL (70-110)
[2024-07-27] MEDS: CEFEPIME 2 GM in SODIUM CHLORIDE 0.9% 100 ML IVPB SCH (17:02)
[2024-07-27] MEDS: DEXTROSE 50% SYRINGE 50 ML IVP PRN (17:02)
[2024-07-27 17:33] LABS: Glucose,Whole Blood 86 mg/dL (70-110)
[2024-07-27 20:55] LABS: Glucose,Whole Blood 228 mg/dL (70-110)
--- NOTE | 2024-07-27 21:17 | PN ---
PROGRESS NOTE DATE OF SERVICE: 07/27/2024 SUBJECTIVE: This 54-year-old gentleman admitted with acute pyelonephritis, being closely monitored. The blood sugar is better controlled. No chest pain or palpitation. Mild fever persist. PHYSICAL EXAMINATION: VITAL SIGNS: Pulse is 100, blood pressure 115/73, T-max is 100.9. HEENT: Conjunctivae normal. CARDIOVASCULAR: S1, S2. RESPIRATIONS: Breath sounds diminished at the bases. ABDOMEN: Soft. NERVOUS SYSTEM: Nonfocal. LABORATORY DATA: Reviewed. ASSESSMENT: 1. Acute pyelonephritis on the left with continued fever. 2. History of left ureteric stent and ureterolithiasis. 3. Elevated WBC. 4. Diabetes mellitus, type 2 with hyperglycemia. 5. Hyponatremia. 6. History of hypertension. 7. History of multiple complex medical issues. RECOMMENDATIONS: Recommend to continue current management and continue symptomatic treatment. Continue with the broad-spectrum IV antibiotics. Await cultures. Closely follow with Infectious Disease and Urology. Guarded prognosis. Further recommendations to follow. MMODL / IJN: [id number] /
[2024-07-28 01:41] LABS: Glucose,Whole Blood 45 mg/dL (70-110)
[2024-07-28 01:49] LABS: Glucose,Whole Blood 53 mg/dL (70-110)
[2024-07-28 02:21] LABS: Glucose,Whole Blood 93 mg/dL (70-110)
[2024-07-28 06:32] LABS: Glucose,Whole Blood 87 mg/dL (70-110)
[2024-07-28 08:19] LABS: BUN/Creat Ratio 17.64 Ratio (12.00-20.00); Blood Urea Nitrogen 24.7 mg/dL (9.0-27.0); Glucose 64 mg/dL (70-110)
[2024-07-28 08:20] LABS: Calcium 8.1 mg/dL (8.7-10.3); Carbon Dioxide 23.2 mmol/L (21.6-31.8); Chloride 104 mmol/L (96-109); Sodium 137 mmol/L (135-145)
[2024-07-28 08:47] LABS: Basophils # (A) 0.04 X 10*3/uL (0.00-0.10); Basophils % (A) 0.4 %; Eosinophils # (A) 0.04 X 10*3/uL (0.04-0.35); Eosinophils % (A) 0.4 %; HCT 33.5 % (39.6-50.0); HGB 10.8 g/dL (13.0-17.0); Lymphocytes # (A) 1.18 X 10*3/uL (0.90-5.00); MCH 27.2 pg (27.0-32.0); MCHC 32.2 g/dL (32.0-37.0); MCV 84.4 FL (80.0-97.0); Mean Platelet Volume 10.2 FL (9.5-12.2); Monocytes # (A) 1.18 X 10*3/uL (0.20-1.00); NRBC Per 100 WBC 0 X 10*3/uL (0.00-0.01); Neutrophils # (A) 6.52 X 10*3/uL (1.80-7.70); Neutrophils % (A) 71.9 %; Platelet Count 278 X 10*3/uL (140-440); RBC 3.97 X 10*6/uL (4.40-5.60); RDW 15.7 % (11.5-14.5); WBC 9.08 X 10*3/uL (4.50-10.00)
[2024-07-28 11:39] LABS: Glucose,Whole Blood 217 mg/dL (70-110)
[2024-07-28 16:27] LABS: Glucose,Whole Blood 129 mg/dL (70-110)
[2024-07-28 18:31] LABS: Glucose,Whole Blood 58 mg/dL (70-110)
[2024-07-28 18:45] LABS: Glucose,Whole Blood 93 mg/dL (70-110)
--- NOTE | 2024-07-28 19:38 | P.PN ---
Subjective Progress Note Date: 07/28/24 Principal diagnosis: Reason for follow-up is complicated UTI Patient is a 54-year-old male past medical history significant for diabetes mellitus hypertension kidney stone in this patient who recently was treated for left-sided hydronephrosis/pyelonephritis with this patient who did have a left ureteral stent subsequent discharged on oral Doxy now presented to this facility with fever chills flank pain has been diagnosed with a complicated UTI prompting this consultation On today's evaluation that is 07/28/2024, the patient did have improvement in his fever pattern and his afebrile this afternoon, the patient is on room air and breathing comfortably, the Pt denies having any chest pain or cough, the patient denies having any abdominal pain no vomiting or any diarrhea, mention feeling slightly better. Patient white count is 9.08 creatinine is 1.4 urine culture with Enterococcus faecalis Objective - Vital Signs Vital signs: Vital Signs Temp 98.9 F 07/28/24 14:00 Pulse 97 07/28/24 14:00 Resp 17 07/28/24 14:00 BP 125/71 07/28/24 14:00 Pulse Ox 96 07/28/24 14:00 FiO2 Intake & Output 07/28/24 07/28/24 07/29/24 06:59 18:59 06:59 Intake Total 500 1891 Output Total 750 980 Balance -250 911 Intake: Oral 500 1891 Output: Urine 750 980 Other: Voiding Method Toilet Urinal - Exam GENERAL DESCRIPTION: Middle-age male up in the room in no distress RESPIRATORY SYSTEM: Unlabored breathing , decreased breath sounds at bases HEART: S1 S2 regular rate and rhythm , ABDOMEN: Soft , no tenderness EXTREMITIES: No edema feet - Labs CBC & Chem 7: 07/28/24 04:26 07/28/24 04:26 Labs: Abnormal Lab Results - Last 24 Hours (Table) 07/27/24 07/28/24 07/28/24 Range/Units 20:54 01:40 01:48 RBC (4.40-5.60) X 10*6/uL Hgb (13.0-17.0) g/dL Hct (39.6-50.0) % RDW (11.5-14.5) % Immature Gran # (0.00-0.04) X 10*3/uL Monocytes # (0.20-1.00) X 10*3/uL Glucose (70-110) mg/dL POC Glucose (mg/dL) 228 H 45 L* 53 L (70-110) mg/dL Calcium (8.7-10.3) mg/dL 07/28/24 07/28/24 07/28/24 Range/Units 04:26 04:26 11:37 RBC 3.97 L (4.40-5.60) X 10*6/uL Hgb 10.8 L (13.0-17.0) g/dL Hct 33.5 L (39.6-50.0) % RDW 15.7 H (11.5-14.5) % Immature Gran # 0.12 H (0.00-0.04) X 10*3/uL Monocytes # 1.18 H (0.20-1.00) X 10*3/uL Glucose 64 L (70-110) mg/dL POC Glucose (mg/dL) 217 H (70-110) mg/dL Calcium 8.1 L (8.7-10.3) mg/dL 07/28/24 07/28/24 Range/Units 16:26 18:27 RBC (4.40-5.60) X 10*6/uL Hgb (13.0-17.0) g/dL Hct (39.6-50.0) % RDW (11.5-14.5) % Immature Gran # (0.00-0.04) X 10*3/uL Monocytes # (0.20-1.00) X 10*3/uL Glucose (70-110) mg/dL POC Glucose (mg/dL) 129 H 58 L (70-110) mg/dL Calcium (8.7-10.3) mg/dL Microbiology - Last 24 Hours (Table) 07/25/24 11:15 Blood Culture - Preliminary Blood 07/25/24 13:15 Urine Culture - Final Urine,Clean Catch Enterococcus faecalis 07/26/24 16:58 Urine Culture - Preliminary Urine,Clean Catch Assessment and Plan (1) Sepsis Current Visit: Yes Status: Acute Code(s): A41.9 - SEPSIS, UNSPECIFIED ORGANISM SNOMED Code(s): 36784513 (2) Pyelonephritis Current Visit: Yes Status: Acute Code(s): N12 - TUBULO-INTERSTITIAL NEPHRITIS, NOT SPCF ACUTE OR CHRONIC SNOMED Code(s): 21596862 Plan: 1patient presented hospital with sepsis in this patient who did have a tachycardia elevated white count and low-grade fever medically for SIRS/sepsis source is urinary in this patient who did have a recent history of left ureteral stent placement for obstructive uropathy with the abnormality seen on the CT significantly positive UA likely concerning for complicated UTI from enteric gram-negative pathogen 2-patient did have improvement in his renal pattern urine has not been finalized Enterococcus faecalis we will discontinue cefepime and start the patient on Unasyn and if remains to be afebrile will be able to finish therapy with oral Augmentin Dictation was produced using [employer] dictation software. please excuse any grammatical, word or spelling errors. Time with Patient: Less than 30
[2024-07-28] MEDS: AMPICILLIN-SULBACTAM 3 GM in SODIUM CHLORIDE 0.9% 100 ML IVPB SCH (20:09)
[2024-07-28 20:34] LABS: Glucose,Whole Blood 65 mg/dL (70-110)
[2024-07-28 21:14] LABS: Glucose,Whole Blood 58 mg/dL (70-110)
[2024-07-28 21:57] LABS: Glucose,Whole Blood 102 mg/dL (70-110)
[2024-07-29 01:13] LABS: Glucose,Whole Blood 257 mg/dL (70-110)
[2024-07-29 06:11] LABS: Glucose,Whole Blood 381 mg/dL (70-110)
--- NOTE | 2024-07-29 06:36 | P.PN ---
Subjective Progress Note Date: 07/28/24 This is a pleasant 54-year-old male who was recently admitted for outpatient treatment with concerns of urinary tract infection and recent left stent placement per urology at another facility and presented with fevers and concerns of pyelonephritis. Patient is maintained on IV antibiotics with infectious disease following and had been evaluated by urology recommending to continue with conservative management and antibiotic therapy and follow-up with his urologist for stent removal. Patient did have overnight temps low-grade with infectious disease following recommend monitoring overnight and repeat labs. Patient is a diabetic and has his insulin pump and was maintained on sliding scale and long-acting along with oral diabetic agents although has his pump supplies and cartridges that were brought in by family. Okay to resume pump and recommend to monitor closely as patient's blood sugars have been uncontrolled. White count is improved at 9.08 and hemoglobin is stable at 10. 8 with no active bleeding noted. Sodium is 137 with a potassium of 4.0, creatinine 1.4. Patient has been encouraged to increase activity as tolerated with plans of possible discharge in the next 24 hours Review of systems: Constitutional: No reports of fatigue, fever, or chills Cardiovascular: No reports of chest pain or palpitations Respiratory: No reports of shortness of breath or cough GI: No further reports of nausea, no reports of vomiting, tolerating diet : No reports of dysuria or retention Neurovascular: reports of generalized weakness but feels improved since admission All medications have been reviewed PHYSICAL EXAMINATION: GENERAL: This is a 54-year-old male who is alert and oriented x 3, Well developed, well nourished. Appears older than stated age, obese HEENT: Pupils are round and equally reacting to light. EOMI. no scleral icterus. No conjunctival pallor. Normocephalic, atraumatic. No pharyngeal erythema. No thyromegaly. CARDIOVASCULAR: S1 and S2 muffled PULMONARY: diminished breath sounds bilaterally with no wheezing or rhonchi noted. ABDOMEN: soft. Nontender on exam. obese. non-distended, normoactive bowel sounds. No palpable organomegaly. MUSCULOSKELETAL: No joint swelling or deformity. EXTREMITIES: No cyanosis, clubbing, or pedal edema. NEUROLOGICAL: Gross neurological examination did not reveal any focal deficits. Diffuse weakness SKIN: No rashes. Assessment: Acute pyelonephritis with continued fevers, present on admission History of recent left ureter stent placement with ureteral lithiasis Leukocytosis likely secondary to assessment #1, trending down Diabetes mellitus, type I, maintained on insulin pump, uncontrolled with hyperglycemia and hypoglycemia History of right leg amputation with prosthesis Hyponatremia, improved with gentle hydration History of previous kidney stones History of hypertension Obesity with a BMI 37.6 GI prophylaxis DVT prophylaxis Full code Plan: Recommend to continue with current medications and management with infectious disease following. Patient was evaluated by urology recommending conservative management and continued antibiotic therapy with treatment of infection and follow-up with his urologist left ureteral stent removal and/or further intervention Patient does have insulin pump with supplies and cartridges that were brought in by family and recommend to continue and discussing with nursing staff regarding blood sugars and any adjustments to the pump. Patient continues to have epis odes of hyper and hypoglycemia and per nursing staff had been adjusting and dosing insulin pumps settings without notifying staff. Continue to monitor Accu-Cheks closely. Oral diabetics also have been resumed. Patient did have a urine culture that remains pending and had a low-grade temp last night with infectious disease following recommended monitoring overnight and awaiting repeat urine cultures, and appropriate antibiotics. [place] and unsure of his coverage if patient will require IV antibiotics. Case management is following and discuss further with infectious disease and will probably continue on oral antibiotics on discharge. Await finalized cultures which should be resulted sometime this evening Encouraged increase activity as tolerated and discussion of discharge planning in the next 24 hours The impression and plan of care has been dictated by Ruth Kennedy, Nurse Practitioner as directed. Dr. Alexx MD I have performed a history and examination and MDM of this patient, discussed the same with the dictator, and agree with the dictator's assessment and plan as written ,documented as a scribe. Based on total visit time, I have performed more than 50% of the visit. Objective - Vital Signs Vital signs: Vital Signs Temp 97.9 F 07/28/24 07:33 Pulse 83 07/28/24 07:33 Resp 18 07/28/24 07:33 BP 138/78 07/28/24 07:33 Pulse Ox 95 07/28/24 07:33 FiO2 Intake & Output 07/27/24 07/28/24 07/28/24 18:59 06:59 18:59 Intake Total 500 240 Output Total 750 580 Balance -250 -340 Intake: Oral 500 240 Output: Urine 750 580 Other: Voiding Method Toilet # Voids 3 # Bowel Movements 1 - Labs CBC & Chem 7: 07/28/24 04:26 07/28/24 04:26 Labs: Abnormal Lab Results - Last 24 Hours (Table) 07/27/24 07/27/24 07/27/24 Range/Units 11:16 16:14 16:53 RBC (4.40-5.60) X 10*6/uL Hgb (13.0-17.0) g/dL Hct (39.6-50.0) % RDW (11.5-14.5) % Immature Gran # (0.00-0.04) X 10*3/uL Monocytes # (0.20-1.00) X 10*3/uL Glucose (70-110) mg/dL POC Glucose (mg/dL) 153 H 61 L 59 L (70-110) mg/dL Calcium (8.7-10.3) mg/dL 07/27/24 07/28/24 07/28/24 Range/Units 20:54 01:40 01:48 RBC (4.40-5.60) X 10*6/uL Hgb (13.0-17.0) g/dL Hct (39.6-50.0) % RDW (11.5-14.5) % Immature Gran # (0.00-0.04) X 10*3/uL Monocytes # (0.20-1.00) X 10*3/uL Glucose (70-110) mg/dL POC Glucose (mg/dL) 228 H 45 L* 53 L (70-110) mg/dL Calcium (8.7-10.3) mg/dL 07/28/24 07/28/24 Range/Units 04:26 04:26 RBC 3.97 L (4.40-5.60) X 10*6/uL Hgb 10.8 L (13.0-17.0) g/dL Hct 33.5 L (39.6-50.0) % RDW 15.7 H (11.5-14.5) % Immature Gran # 0.12 H (0.00-0.04) X 10*3/uL Monocytes # 1.18 H (0.20-1.00) X 10*3/uL Glucose 64 L (70-110) mg/dL POC Glucose (mg/dL) (70-110) mg/dL Calcium 8.1 L (8.7-10.3) mg/dL Microbiology - Last 24 Hours (Table) 07/25/24 13:15 Urine Culture - Final Urine,Clean Catch Enterococcus faecalis 07/26/24 16:58 Urine Culture - Preliminary Urine,Clean Catch 07/25/24 11:15 Blood Culture - Preliminary Blood
[2024-07-29 08:12] VITALS: BP 149/79; PULSE 91; RESP 18; TEMP 98.2
[2024-07-29 09:46] LABS: Basophils # (A) 0.07 X 10*3/uL (0.00-0.10); Basophils % (A) 0.8 %; Eosinophils # (A) 0.17 X 10*3/uL (0.04-0.35); Eosinophils % (A) 1.8 %; HCT 33.2 % (39.6-50.0); HGB 11.1 g/dL (13.0-17.0); Lymphocytes % (A) 16.1 %; MCHC 33.4 g/dL (32.0-37.0); MCV 83.6 FL (80.0-97.0); Mean Platelet Volume 9.9 FL (9.5-12.2); Monocytes # (A) 1.46 X 10*3/uL (0.20-1.00); Monocytes % (A) 15.7 %; NRBC Per 100 WBC 0 X 10*3/uL (0.00-0.01); Neutrophils # (A) 5.96 X 10*3/uL (1.80-7.70); Neutrophils % (A) 64.2 %; Platelet Count 307 X 10*3/uL (140-440); RBC 3.97 X 10*6/uL (4.40-5.60); RDW 15.9 % (11.5-14.5); WBC 9.29 X 10*3/uL (4.50-10.00)
[2024-07-29 10:29] LABS: BUN/Creat Ratio 15.18 Ratio (12.00-20.00); Blood Urea Nitrogen 16.7 mg/dL (9.0-27.0); Carbon Dioxide 21.5 mmol/L (21.6-31.8); Chloride 101 mmol/L (96-109); Glucose 384 mg/dL (70-110); Potassium 4.5 mmol/L (3.5-5.5); Sodium 131 mmol/L (135-145)
[2024-07-29 10:30] LABS: Calcium 7.8 mg/dL (8.7-10.3)
[2024-07-29 11:43] LABS: Glucose,Whole Blood 331 mg/dL (70-110)
--- NOTE | 2024-07-29 18:32 | P.PN ---
Subjective Progress Note Date: 07/29/24 Principal diagnosis: Reason for follow-up is complicated UTI Patient is a 54-year-old male past medical history significant for diabetes mellitus hypertension kidney stone in this patient who recently was treated for left-sided hydronephrosis/pyelonephritis with this patient who did have a left ureteral stent subsequent discharged on oral Doxy now presented to this facility with fever chills flank pain has been diagnosed with a complicated UTI prompting this consultation On today's evaluation that is 07/30/2023, patient did have a temperature of 98 F this morning and denies having any chills, patient is on room air and breathing comfortably no chest pain or cough, the patient did not have any nausea vomiting abdominal pain or any diarrhea, mention feeling better. Patient white count is 9.29, creatinine is 1.1 urine with Enterococcus faecalis ampicillin sensitive blood culture negative Objective - Vital Signs Vital signs: Vital Signs Temp 98.2 F 07/29/24 07:23 Pulse 91 07/29/24 07:23 Resp 18 07/29/24 07:23 BP 149/79 07/29/24 07:23 Pulse Ox 91 L 07/29/24 09:44 FiO2 Intake & Output 07/28/24 07/29/24 07/29/24 18:59 06:59 18:59 Intake Total 1891 1565 Output Total 980 700 Balance 911 865 Intake: Intake, IV Titration 1025 Amount Ampicillin-Sulbactam 3 gm 200 In Sodium Chloride 0.9% 100 ml @ 200 mls/hr IVPB Q6HR RICHAR Rx#:[id number] Sodium Chloride 0.9% 1, 825 000 ml @ 75 mls/hr IV . [id number] RICHAR Rx#:[id number] Oral 1891 540 Output: Urine 980 700 Other: Voiding Method Urinal Urinal Urinal - Exam GENERAL DESCRIPTION: Middle-age male up in the room in no distress RESPIRATORY SYSTEM: Unlabored breathing , decreased breath sounds at bases HEART: S1 S2 regular rate and rhythm , ABDOMEN: Soft , no tenderness EXTREMITIES: No edema feet - Labs CBC & Chem 7: 07/29/24 05:47 07/29/24 05:47 Labs: Abnormal Lab Results - Last 24 Hours (Table) 07/28/24 07/28/24 07/28/24 Range/Units 16:26 18:27 20:33 RBC (4.40-5.60) X 10*6/uL Hgb (13.0-17.0) g/dL Hct (39.6-50.0) % RDW (11.5-14.5) % Immature Gran # (0.00-0.04) X 10*3/uL Monocytes # (0.20-1.00) X 10*3/uL Sodium (135-145) mmol/L Carbon Dioxide (21.6-31.8) mmol/L Glucose (70-110) mg/dL POC Glucose (mg/dL) 129 H 58 L 65 L (70-110) mg/dL Calcium (8.7-10.3) mg/dL 07/28/24 07/29/24 07/29/24 Range/Units 21:13 01:11 05:47 RBC 3.97 L (4.40-5.60) X 10*6/uL Hgb 11.1 L (13.0-17.0) g/dL Hct 33.2 L (39.6-50.0) % RDW 15.9 H (11.5-14.5) % Immature Gran # 0.13 H (0.00-0.04) X 10*3/uL Monocytes # 1.46 H (0.20-1.00) X 10*3/uL Sodium (135-145) mmol/L Carbon Dioxide (21.6-31.8) mmol/L Glucose (70-110) mg/dL POC Glucose (mg/dL) 58 L 257 H (70-110) mg/dL Calcium (8.7-10.3) mg/dL 07/29/24 07/29/24 07/29/24 Range/Units 05:47 06:10 11:39 RBC (4.40-5.60) X 10*6/uL Hgb (13.0-17.0) g/dL Hct (39.6-50.0) % RDW (11.5-14.5) % Immature Gran # (0.00-0.04) X 10*3/uL Monocytes # (0.20-1.00) X 10*3/uL Sodium 131 L (135-145) mmol/L Carbon Dioxide 21.5 L (21.6-31.8) mmol/L Glucose 384 H (70-110) mg/dL POC Glucose (mg/dL) 381 H 331 H (70-110) mg/dL Calcium 7.8 L (8.7-10.3) mg/dL Microbiology - Last 24 Hours (Table) 07/26/24 16:58 Urine Culture - Final Urine,Clean Catch Enterococcus faecalis 07/25/24 11:15 Blood Culture - Preliminary Blood Assessment and Plan (1) Sepsis Status: Acute Code(s): A41.9 - SEPSIS, UNSPECIFIED ORGANISM SNOMED Code(s): 54407993 (2) Pyelonephritis Status: Acute Code(s): N12 - TUBULO-INTERSTITIAL NEPHRITIS, NOT SPCF ACUTE OR CHRONIC SNOMED Code(s): 43300191 Plan: 1patient presented hospital with sepsis in this patient who did have a tach ycardia elevated white count and low-grade fever medically for SIRS/sepsis source is urinary in this patient who did have a recent history of left ureteral stent placement for obstructive uropathy with the abnormality seen on the CT significantly positive UA likely concerning for complicated UTI from enteric gram-negative pathogen 2-patient did have improvement clinically blood culture have been negative plan is to finish therapy with oral Augmentin x 10 days advised to follow-up with his urologist regarding further management of left-sided renal stone/stent Dictation was produced using [employer] dictation software. please excuse any grammatical, word or spelling errors. Time with Patient: Less than 30
--- NOTE | 2024-07-31 22:03 | P.DS ---
Providers Date of admission: 07/25/24 00:12 Attending physician: Brant Sheppard Consults: 07/25/24 00:38 Consult Physician Routine Consulting Provider: Abimael Contreras Consult Reason/Comments: urology stent Do you want consulting provider notified?: Yes 07/26/24 13:23 Consult Physician Routine Consulting Provider: Abiel Decker Consult Reason/Comments: sepsis, abnormal ct scan Do you want consulting provider notified?: Yes Primary care physician: Physician Nonstaff Hospital Course: Final Diagnosis Acute pyelonephritis with continued fevers, present on admission History of recent left ureter stent placement with ureteral lithiasis Leukocytosis likely secondary to assessment #1, trending down Diabetes mellitus, type I, maintained on insulin pump, uncontrolled with hyperglycemia and hypoglycemia History of right leg amputation with prosthesis Hyponatremia, improved with gentle hydration History of previous kidney stones History of hypertension Obesity with a BMI 37.6 Discharge Disposition Patient is stable for discharge home. Patient to complete antibiotic therapy with 2 weeks of oral augmentin therapy. Recommending to follow up with his urologist out of [place] for removal of ureteral stent. Follow up with Dr Decker in one week post discharge. Monitor renal function. Total time taken in discharge planning greater than 35 minutes. Hospital Course This is a pleasant 54-year-old male who was recently admitted for outpatient treatment with concerns of urinary tract infection and recent left stent placement per urology at another facility and presented with fevers and concerns of pyelonephritis. Patient is maintained on IV antibiotics with infectious disease following and had been evaluated by urology recommending to continue with conservative management and antibiotic therapy and follow-up with his urologist for stent removal. Patient did have overnight temps low-grade. Patient is a diabetic and has his insulin pump and was maintained on sliding scale and long-acting along with oral diabetic agents although has his pump supplies and cartridges that were brought in by family. White count is improved at 9.08 and hemoglobin is stable at 10.8 with no active bleeding noted. Sodium is 137 with a potassium of 4.0, creatinine 1.4. Patient was treated with IV antibiotic therapy with urine culture finalizing to show enterococcus faecalis. ID recommending to finish course of antibiotic therapy with oral augmentin on discharge. Review of Systems Constitutional: Denied any fatigue denied any fever. Cardio vascular: denied any chest pain, palpitations Gastrointestinal: denied any nausea, vomiting, diarrhea Pulmonary: Denied any shortness of breath cough Neurologic denied any new focal deficits All inpatient medications were reviewed and appropriate changes in these m edications as dictated in the interval history and assessment and plan. PHYSICAL EXAMINATION: GENERAL: The patient is alert and oriented x3, not in any acute distress. Well developed, well nourished. HEENT: Pupils are round and equally reacting to light. EOMI. No scleral icterus. No conjunctival pallor. Normocephalic, atraumatic. No pharyngeal erythema. No thyromegaly. CARDIOVASCULAR: S1 and S2 present. No murmurs, rubs, or gallops. PULMONARY: Chest is clear to auscultation, no wheezing or crackles. ABDOMEN: Soft, nontender, nondistended, normoactive bowel sounds. No palpable organomegaly. MUSCULOSKELETAL: No joint swelling or deformity. EXTREMITIES: No cyanosis, clubbing, or pedal edema. NEUROLOGICAL: Gross neurological examination did not reveal any focal deficits. SKIN: No rashes. Please see medication reconciliation for a list of current medications. Thank you for allowing us to participate in the care of this patient. The impression and plan of care has been dictated by Ana Gibbs, Nurse Practitioner as directed. Dr. Alexx MD I have performed a history and physical examination and medical decision making of this patient, discussed the same with the dictator, and agree with the dictators assessment and plan as written, documented as a scribe. Based on total visit time, I have performed more than 50% of this visit. Patient Condition at Discharge: Fair Plan - Discharge Summary Discharge Rx Participant: No New Discharge Prescriptions: New Amoxic-Pot Clav 875-125Mg [Augmentin 875-125] 1 tab PO Q12HR 14 Days #28 tab Continue amLODIPine [Norvasc] 5 mg PO DAILY Aspirin 81 mg PO DAILY Atorvastatin Calcium [Lipitor] 40 mg PO DAILY Cyanocobalamin [Vitamin B-12] 500 mcg PO DAILY Fluticasone Nasal Mcdowell [Flonase Nasal Mcdowell] 1 spray EA NOSTRIL DAILY Insulin Regular [humuLIN R] 0.01 units SQ-PUMP CONTINUOUS Levothyroxine Sodium [Synthroid] 125 mcg PO DAILY Liothyronine Sodium [Cytomel] 5 mcg PO BID Loratadine [Claritin] 10 mg PO DAILY Omeprazole 40 mg PO DAILY Ondansetron Odt [Zofran ODT] 4 mg PO Q8H PRN PRN Reason: Nausea Pregabalin [Lyrica] 150 mg PO BID traZODone HCL [Desyrel] 50 mg PO HS Albuterol Sulfate [Albuterol Sulfate Hfa] 2 puff PO RT-Q4H PRN PRN Reason: Shortness Of Breath Ammonium Lactate Lotion [Lac-Hydrin 12% Lotion] 1 applic TOPICAL DAILY Brimonidine Tartrate/Timolol [Combigan 0.2%-0.5% Eye Drops] 1 drop BOTH EYES BID Dextroamphetamine/Amphetamine [Adderall Xr 20 mg Capsule] 20 mg PO DAILY Fenofibrate [Lofibra] 160 mg PO DAILY Ferrous Sulfate [Iron (65 MG Elemental)] 325 mg PO DAILY FLUoxetine HCL [PROzac] 40 mg PO DAILY Glucagon [Gvoke Pfs 1-Pack Syringe] 1 mg SQ DIRECTED PRN PRN Reason: Blood Sugar - Low Latanoprost [Latanoprost 0.005%] 1 drop BOTH EYES HS Losartan Potassium [Cozaar] 100 mg PO DAILY metFORMIN HCL [Glucophage] 500 mg PO DAILY OXcarbazepine [Trileptal] 300 mg PO BID Potassium Chloride [Klor-Con M10] 10 meq PO BID Semaglutide [Ozempic] 0.25 mg SQ TH Testosterone Cypionate [Depo-Testosterone] 200 mg IM TH Vitamin B Complex 1 cap PO DAILY Discontinued hydroCHLOROthiazide [Hydrodiuril] 25 mg PO DAILY Discharge Medication List Albuterol Sulfate [Albuterol Sulfate Hfa] 2 puff PO RT-Q4H PRN 07/25/24 [History] Ammonium Lactate Lotion [Lac-Hydrin 12% Lotion] 1 applic TOPICAL DAILY 07/25/24 [History] Aspirin 81 mg PO DAILY 07/25/24 [History] Atorvastatin Calcium [Lipitor] 40 mg PO DAILY 07/25/24 [History] Brimonidine Tartrate/Timolol [Combigan 0.2%-0.5% Eye Drops] 1 drop BOTH EYES BID 07/25/24 [History] Cyanocobalamin [Vitamin B-12] 500 mcg PO DAILY 07/25/24 [History] Dextroamphetamine/Amphetamine [Adderall Xr 20 mg Capsule] 20 mg PO DAILY 07/25/24 [History] FLUoxetine HCL [PROzac] 40 mg PO DAILY 07/25/24 [History] Fenofibrate [Lofibra] 160 mg PO DAILY 07/25/24 [History] Ferrous Sulfate [Iron (65 MG Elemental)] 325 mg PO DAILY 07/25/24 [History] Fluticasone Nasal Mcdowell [Flonase Nasal Mcdowell] 1 spray EA NOSTRIL DAILY 07/25/24 [History] Glucagon [Gvoke Pfs 1-Pack Syringe] 1 mg SQ DIRECTED PRN 07/25/24 [History] Insulin Regular [humuLIN R] 0.01 units SQ-PUMP CONTINUOUS 07/25/24 [History] Latanoprost [Latanoprost 0.005%] 1 drop BOTH EYES HS 07/25/24 [History] Levothyroxine Sodium [Synthroid] 125 mcg PO DAILY 07/25/24 [History] Liothyronine Sodium [Cytomel] 5 mcg PO BID 07/25/24 [History] Loratadine [Claritin] 10 mg PO DAILY 07/25/24 [History] Losartan Potassium [Cozaar] 100 mg PO DAILY 07/25/24 [History] OXcarbazepine [Trileptal] 300 mg PO BID 07/25/24 [History] Omeprazole 40 mg PO DAILY 07/25/24 [History] Ondansetron Odt [Zofran ODT] 4 mg PO Q8H PRN 07/25/24 [History] Potassium Chloride [Klor-Con M10] 10 meq PO BID 07/25/24 [History] Pregabalin [Lyrica] 150 mg PO BID 07/25/24 [History] Semaglutide [Ozempic] 0.25 mg SQ TH 07/25/24 [History] Testosterone Cypionate [Depo-Testosterone] 200 mg IM TH 07/25/24 [History] Vitamin B Complex 1 cap PO DAILY 07/25/24 [History] amLODIPine [Norvasc] 5 mg PO DAILY 07/25/24 [History] metFORMIN HCL [Glucophage] 500 mg PO DAILY 07/25/24 [History] traZODone HCL [Desyrel] 50 mg PO HS 07/25/24 [History] Amoxic-Pot Clav 875-125Mg [Augmentin 875-125] 1 tab PO Q12HR 14 Days #28 tab 07/29/24 [Rx] Follow up Appointment(s)/Referral(s): Nonstaff,Physician [Primary Care Provider] - 1-2 days Abiel Decker MD [STAFF PHYSICIAN] - 1 Week Ambulatory/Diagnostic Orders: Basic Metabolic Panel [LAB.AMB] Time Frame: 3 Days, Location: None Selected Patient Instructions/Handouts: Kidney Infection (DC), Flank Pain (ED) Activity/Diet/Wound Care/Special Instructions: Continue antibiotics twice daily for 2 weeks Follow up with your urologist out of [place] Hold the hydrodiuril on discharge Discharge Disposition: HOME SELF-CARE
== END 2024-07-29 15:07 | disposition home or self-care (01) | DRG 872 ==
LOC: EC 21:41 → 5NMEDONC 07-25 00:12 → 1SOBS 07-25 03:19 → 4SSUR 07-26 17:10
PROVIDERS: ADMIT Hospitalist; ATTEND Hospitalist
DX: A41.9 Sepsis, unspecified organism (principal); N10 Acute pyelonephritis; Z89.611 Acquired absence of right leg above knee; E87.1 Hypo-osmolality and hyponatremia; E10.65 Type 1 diabetes mellitus with hyperglycemia; E66.9 Obesity, unspecified; I10 Essential (primary) hypertension; Z79.4 Long term (current) use of insulin; B95.2 Enterococcus as the cause of diseases classified elsewhere; Z68.37 Body mass index [BMI] 37.0-37.9, adult; Z79.82 Long term (current) use of aspirin; Z79.899 Other long term (current) drug therapy; Z79.890 Hormone replacement therapy; Z79.84 Long term (current) use of oral hypoglycemic drugs; Z87.442 Personal history of urinary calculi; Z96.41 Presence of insulin pump (external) (internal)
CPT/HCPCS: 36415; 74176; 80048; 80053; 81001; 83036; 83735; 84100; 85025; 87040; 87077; 87086; 87186; 94760; 96361; 96365; 96366; 96375; 99285